=== PATIENT | female | born 1995 | race Caucasian/White ===

== ENCOUNTER 2019-02-04 13:25 | Inpatient (IN) | payer OTHER, SELFPAY ==
[2019-02-04 04:13] VITALS: BMI 32.7
--- NOTE | 2019-02-04 13:03 | OB.TRI.NOTE ---
History of Present Illness Date of Service: 02/04/19 Was patient seen by the physician?: No Reason For Visit: R/O LABOR Date of Service: 02/04/19 Final HERBIE: 02/02/19 Gestational age: 40 Weeks and 2 Days Allergies No Known Allergies Allergy (Verified 02/04/19 04:13) NST - FHR Rate Baby A Baseline: 140 Variability:: Moderate Accelerations:: 15 x 15 Decelerations:: None NST Reactive:: Yes, Appropriate for gestational age FHR Category:: Category I Uterine Activity:: irreg ctxs Impression/Plan 24-year-old 1 para 0 at 40-2/7 weeks gestation with false labor. Patient was discharged home with labor precautions. Kick counts. Follow-up as scheduled or as needed.
[2019-02-04] MEDS: Lactated Ringers 1,000 ML 50 ML IV (14:00)
[2019-02-04] MEDS: Lactated Ringers 500 ML 999 ML IV (14:00)
[2019-02-04 14:15] LABS: Absolute Lymphocyte Count 0.77 X10^3/uL (0.83-4.51); Absolute Neutrophil Count 12.8 X10^3/uL (2.0-7.7); Basophil# 0.06 X10^3/uL; Basophil% 0.4 % (0-1); Eosinophil# 0.01 X10^3/uL; Eosinophils% 0.1 % (0-5); Hematocrit 34.1 % (37-47); Hemoglobin 11.4 g/dL (12.0-15.0); Lymphocyte # 0.77 X10^3/ul (4.0); Lymphocyte % 5.3 % (19-41); Mean Corp Hgb Conc 33.4 g/dL (32-36); Mean Corpuscular Hgb 32.8 pg (27.0-32.0); Mean Platelet Vol. 12.5 fl (6.2-12.0); Monocyte# 0.83 X10^3/uL; Monocyte% 5.7 % (0-10); NRBC Flagged by Analyzer 0 % (0-5); Neutrophil # 12.78 X10^3/uL (2.7-7.7); Neutrophil % 87.2 % (47-70); Platelet Count 147 K/mm3 (150-450); RBC Distribution Width CV 15.6 % (11.6-14.6); RBC Distribution Width SD 55.5 fl (35.1-43.9); Red Blood Count 3.48 M/mm3 (4.2-5.4); White Blood Count 14.6 K/mm3 (4.4-11.0)
[2019-02-04] MEDS: fentaNYL-bupivacaine (epidural) 100 ML BAG EPIDURAL (15:04)
--- NOTE | 2019-02-04 16:56 | PCM.PN.BLA ---
Progress Note Seen at bedside resting comfortably with epidural in place. AROM performed clear fluid expelled. Vaginal exam is 9/100/0. anticipate
[2019-02-04] MEDS: Oxytocin 30 units/NS 500 ml 30 UNITS/500 ML IV.SOLN 334 UNITS IV (19:30)
--- NOTE | 2019-02-04 20:01 | HP.PCM_ITS ---
History Date of Admission: 02/04/19 Final HERBIE: 02/02/19 Final HERBIE Source: US <20 weeks Gestational age: 40 Weeks and 2 Days History of this : This is a 24 year-old, 4 para 0-0-3-0 presents at 40-2/7 weeks gestation complaining of contractions. She was here earlier than day for contractions and was sent home, she arrived back and was found to be in active labor. Denies any gross vaginal bleeding or leaking of fluid. has been complicated to date by anemia of . She did have IV iron infusions for this during the as she had iron malabsorption and did not tolerate oral iron. She has also had PUPPPS Allergies No Known Allergies Allergy (Verified 02/04/19 13:54) Home Medications: Home Medications Iron 45 mg INTRAVESICAL UD 02/04/19 Smoking Status: Never smoker Number of Fetus(es): 1 History Past Pregnancies: Past Pregnancies Delivery Date Name GA/ Weeks Outcome Route Wt Infant Sex Labor Length Anesthesia Delivery Location Provider FOB Expected Infant Delivery Method: Spontaneous Vaginal Review of Systems Constitutional: Denies: Anorexia, Chills, Fever Cardiovascular: Denies: Chest Pain Respiratory: Denies: Cough Genitourinary: Denies: Dysuria Skin: Reports: Rash - PUPPPS Physical Exam General: Alert, Cooperative Cardiovascular: Regular rate Lungs: Normal air movement Abdomen: Soft, Non Tender, Gravid, Appropriate for Gestational Age Extremities:: Other - 1+ edema Neurological: Cranial nerves II-XII grossly intact CHARGE PREPARATION TECHNICIAN: Normal external genitalia Estimated gestational size: Appropriate for gestational size Presentation: Cephalic Cervix Dilation (cm): 5 Station: -1 Effacement (%): 80 Assessment/Plan This is a 24 year-old, 4 para 0 at 40-2/7 weeks gestation in active labor. Estimated weight is less than 4500 g clinically, pelvis is clinically adequate to expect vaginal delivery. May have epidural, nitrous oxide or Nubain as needed for pain control.
--- NOTE | 2019-02-04 20:05 | PCM.OPRPT ---
Vaginal Delivery Maternal Presentation: Active Labor Amniotic Membrane Rupture Type: Artificial Amniotic Fluid Description: Clear Final HERBIE: 02/02/19 Gestational age: 40 Weeks and 2 Days Date of Procedure: 02/04/19 Pre-Operative Diagnosis: labor Post-Operative Diagnosis: same Surgery/ Procedure Performed: Spontaneous Vaginal Delivery Type of Anesthesia: Epidural Description of Procedure: A vigorous male was delivered GLENN over a second-degree perineal laceration. The remainder the was delivered with maternal pushing and gentle traction only in less than 15 seconds. The Pitocin infusion was initiated for active management of the third stage. The cord was clamped and cut after 1 minute. The infant was attended to by the waiting nursing staff. The placenta was delivered spontaneously and intact. The cervix and vagina were intact. The second-degree perineal laceration was repaired with 3-0 Vicryl suture in a running standard fashion. Sponge and needle counts were correct. A vaginal sweep was completed by me. Presentation: [place] Placental Delivery Description: Spontaneous Placenta Disposition: [facility] Cord Vessel Description: 3 Vessels Cord Entanglement: None Drain: Mccarty to straight drain Estimated Blood Loss: 400 A gender: Male (1 minute): 8 (5 minute): 9 Episiotomy Description: None Laceration: 2nd degree - perineal Medications given after delivery: IV Pitocin Complications: None
[2019-02-04] MEDS: 0.9% Saline Lock 10 ML Syringe IV (22:15)
[2019-02-04 23:40] VITALS: BP 107/63; PULSE 107; RESP 16; TEMP 36.6
[2019-02-04] MEDS: Naproxen 250 MG Tablet 500 MG PO (23:51)
[2019-02-05 03:00] VITALS: BP 104/63; PULSE 85; RESP 16; TEMP 36.6
[2019-02-05 06:02] LABS: Hemoglobin 9.3 g/dL (12.0-15.0); Mean Corp Hgb Conc 33.2 g/dL (32-36); Mean Corpuscular Volume 99.3 fL (81-99); Mean Platelet Vol. 12.9 fl (6.2-12.0); POSITIVE DIFFERENTIAL YES; Platelet Count 124 K/mm3 (150-450); RBC Distribution Width CV 15.5 % (11.6-14.6); RBC Distribution Width SD 56.1 fl (35.1-43.9); Red Blood Count 2.82 M/mm3 (4.2-5.4); White Blood Count 15.8 K/mm3 (4.4-11.0)
[2019-02-05 06:05] LABS: Scan Indicated on CBC? Y/N NO
[2019-02-05 08:05] VITALS: BP 107/67; RESP 16; TEMP 36.8
--- NOTE | 2019-02-05 08:11 | PN.OBGYN_ITS ---
Subjective: She is seen at bedside doing well. Patient reports good pain control. Mild lochia. Breast-feeding going well. Voiding without difficulty - Physical Exam Vitals/I&O's: Vital Signs Temp Pulse Resp BP 98.2 F 85 16 107/67 02/05/19 08:05 02/05/19 03:00 02/05/19 08:05 02/05/19 08:05 Oxygen Delivery Method Room Air Weight: 92 kg Body Mass Index (BMI) 32.7 Intake and Output for Last 24 Hours 02/03/19 02/04/19 02/05/19 23:59 23:59 23:59 Intake Total 1995.67 / Output Total 550 / 550 750 / 750 Balance 1446.67 / 1446.67 -750 / -750 General: Alert, Oriented x3 Abdomen: Soft, Non Tender, Non-Distended, - - fundus firm Extremities: No Calf Tenderness Laboratory Results 02/04/19 13:56: WBC 14.6 H, RBC 3.48 L, Hgb 11.4 L, Hct 34.1 L, MCV 98.0, MCH 32.8 H, MCHC 33.4, RDW Std Deviation 55.5 H, RDW Coeff of Stanislaw 15.6 H, Plt Count 147 L, MPV 12.5 H, Immature Gran % (Auto) 1.300 H, Neut % (Auto) 87.2 H, Lymph % (Auto) 5.3 L, Thomas % (Auto) 5.7, Eos % (Auto) 0.1, Baso % (Auto) 0.4, Absolute Neuts (auto) 12.8 H, Absolute Lymphs (auto) 0.77 L, Nucleated RBC % 0 02/04/19 13:56: Blood Type Cancelled, A1 Antigen Typing Cancelled, Rho(D) Type Cancelled, Antibody Screen Cancelled 02/04/19 15:15: Blood Type O POSITIVE, Antibody Screen NEGATIVE 02/05/19 05:15: WBC 15.8 H, RBC 2.82 L, Hgb 9.3 L, Hct 28.0 L, MCV 99.3 H, MCH 33.0 H, MCHC 33.2, RDW Std Deviation 56.1 H, RDW Coeff of Stanislaw 15.5 H, Plt Count 124 L, MPV 12.9 H Current Medications Acetaminophen (Tylenol) 1,000 mg PO Q8H PRN PRN PRN Reason: Pain Score 1-3/10 Bisacodyl (Dulcolax) 10 mg RECTAL UD PRN PRN Reason: If no BM Dibucaine (Dibucaine) 1 applic TOPICAL TID PRN PRN; Protocol PRN Reason: Discomfort Hydrocortisone (Hytone) 1 applic TOPICAL TID PRN PRN; Protocol PRN Reason: Discomfort Methylergonovine Maleate (Methergine) 0.2 mg IM X1 PRN PRN Reason: Excess bleeding/uterine atony Naproxen (Naprosyn) 500 mg PO Q8H PRN PRN PRN Reason: Pain Score 1-3/10 Last Admin: 02/04/19 23:51 Dose: 500 mg Documented by: Ondansetron HCl (Zofran) 4 mg IV Q4H PRN PRN PRN Reason: Nausea Oxycodone HCl (Oxyir) 5 mg PO Q4H PRN PRN PRN Reason: Pain Score 6-10/10 Prochlorperazine Edisylate (Compazine Iv) 10 mg IV Q6H PRN PRN PRN Reason: NAUSEA/VOMITING Senna/Docusate Sodium (Senokot-S, Barbara-Colace) 1 - 2 tablet PO DAILY PRN PRN PRN Reason: Constipation Simethicone (Mylicon) 80 mg PO PCHS PRN PRN Reason: Indigestion/Stomach pain Sodium Chloride () 5 - 15 ml IV UD PRN PRN Reason: SALINE FLUSH Last Admin: 02/04/19 22:15 Dose: 10 ml Documented by: Medical Necessity - Tobacco Use Smoking Status: Never smoker Assessment/Plan PPD#1, doing well routine care pain mgmt ambulation likely dc home in morning
[2019-02-05] MEDS: Naproxen 250 MG Tablet 500 MG PO ×2 (08:35→20:25)
--- NOTE | 2019-02-05 08:47 | NURSING ---
double checked student's assessment of fundus by chcking pt's fundus myself: FF at -1 small amount of rubra noted on peripad. Assisted student with giving pt naproxen per pt request
[2019-02-05 08:53] VITALS: PULSE 72
[2019-02-05 12:00] VITALS: BP 95/59; PULSE 77; RESP 16; TEMP 36.4
[2019-02-05] MEDS: Acetaminophen 500 MG Tablet 1000 MG PO (14:40)
[2019-02-05] MEDS: Senna/Docusate Sodium 1 Tablet PO (14:40)
[2019-02-05] MEDS: Hydrocortisone 2.5% Crm 1 APPLIC TOPICAL (16:53)
[2019-02-05 16:54] VITALS: BP 101/53; PULSE 76; RESP 18; TEMP 36.9
[2019-02-05 20:15] VITALS: BP 110/56; PULSE 61; RESP 16; TEMP 36.7
[2019-02-06 02:55] VITALS: BP 98/49; PULSE 76; RESP 18; TEMP 36.6; O2SAT 95
[2019-02-06] MEDS: Naproxen 250 MG Tablet 500 MG PO (06:51)
[2019-02-06 08:10] VITALS: BP 117/72; PULSE 75; RESP 16; TEMP 36.4
--- NOTE | 2019-02-06 08:30 | PCM.PN.OB ---
Subjective: No complaints - Physical Exam Vitals/I&O's: Vital Signs Temp Pulse Resp BP Pulse Ox 97.9 F 76 18 98/49 L 95 02/06/19 02:55 02/06/19 02:55 02/06/19 02:55 02/06/19 02:55 02/06/19 02:55 Oxygen Delivery Method Room Air Weight: 202 lb 13.204 oz Body Mass Index (BMI) 32.7 Intake and Output for Last 24 Hours 02/04/19 02/05/19 02/06/19 23:59 23:59 23:59 Intake Total 1995.67 / 67 Output Total 550 / 550 750 / 750 Balance 1446.67 / 1446.67 -750 / -750 General: Alert, Oriented x3 Abdomen: Soft, Non Tender, Non-Distended - ff mid & below umb Extremities: No Calf Tenderness Current Medications Acetaminophen (Tylenol) 1,000 mg PO Q8H PRN PRN PRN Reason: Pain Score 1-3/10 Last Admin: 02/05/19 14:40 Dose: 1,000 mg Documented by: Bisacodyl (Dulcolax) 10 mg RECTAL UD PRN PRN Reason: If no BM Dibucaine (Dibucaine) 1 applic TOPICAL TID PRN PRN; Protocol PRN Reason: Discomfort Hydrocortisone (Hytone) 1 applic TOPICAL TID PRN PRN; Protocol PRN Reason: Discomfort Last Admin: 02/05/19 16:53 Dose: 1 applicatio Documented by: Methylergonovine Maleate (Methergine) 0.2 mg IM X1 PRN PRN Reason: Excess bleeding/uterine atony Naproxen (Naprosyn) 500 mg PO Q8H PRN PRN PRN Reason: Pain Score 1-3/10 Last Admin: 02/06/19 06:51 Dose: 500 mg Documented by: Ondansetron HCl (Zofran) 4 mg IV Q4H PRN PRN PRN Reason: Nausea Oxycodone HCl (Oxyir) 5 mg PO Q4H PRN PRN PRN Reason: Pain Score 6-10/10 Prochlorperazine Edisylate (Compazine Iv) 10 mg IV Q6H PRN PRN PRN Reason: NAUSEA/VOMITING Senna/Docusate Sodium (Senokot-S, Barbara-Colace) 1 - 2 tablet PO DAILY PRN PRN PRN Reason: Constipation Last Admin: 02/05/19 14:40 Dose: 2 tablet Documented by: Simethicone (Mylicon) 80 mg PO HS PRN PRN Reason: Indigestion/Stomach pain Sodium Chloride () 5 - 15 ml IV UD PRN PRN Reason: SALINE FLUSH Last Admin: 02/04/19 22:15 Dose: 10 ml Documented by: Medical Necessity - Tobacco Use Smoking Status: Never smoker Assessment/Plan PPD#2 D/c home
--- NOTE | 2019-02-06 08:32 | DCINST_ITS ---
Discharge Diet: No Restrictions Discharge Activity: May Drive, May Shower May resume sexual activity in: 4-6 weeks Weight Bearing Status: Weight bearing as tolerated Additional Instructions: If you experience any of the following, contact your healthcare provider. * Bleeding that soaks a pad every hour for 2 hours * Fever 100.4 or higher * Unrelieved incision or abdominal pain * Swelling, redness, discharge or bleeding from your incision or episiotomy site * Your incision begins to separate * Problems urinating (including inability to urinate or burning while urinating). * Visual changes * Severe headache * Flu-like symptoms * Pain or redness in one of both of your breasts * Pain, warmth, tenderness or swelling in your legs, especially the calf area * Frequent nausea and vomiting * Symptoms of depression or anxiety If you experience any of the following, call 911 or go to the nearest Emergency Room. * Chest pain * Problems breathing * Seizure activity * Partial or complete paralysis of a body part, slurred speech, weakness or drooping of the face, or a sudden inability to walk or hold your balance Allergies/Adverse Reactions: Allergies No Known Allergies Allergy (Verified 02/04/19 13:54) Medications to take at Discharge Iron 45 mg INTRAVESICAL UD 02/04/19 Primary Care Physician: Xander Ziegler MD [Primary Care Provider] - Test Results: Test results from this visit will be discussed in further detail at your follow- up appointment, if applicable.
--- NOTE | 2019-02-06 08:32 | PCM.DCVAG ---
Discharge Diet: No Restrictions Discharge Activity: May Drive, May Shower May resume sexual activity in: 4-6 weeks Weight Bearing Status: Weight bearing as tolerated Additional Instructions: If you experience any of the following, contact your healthcare provider. Bleeding that soaks a pad every hour for 2 hours Fever 100.4 or higher Unrelieved incision or abdominal pain Swelling, redness, discharge or bleeding from your incision or episiotomy site Your incision begins to separate Problems urinating (including inability to urinate or burning while urinating). Visual changes Severe headache Flu-like symptoms Pain or redness in one of both of your breasts Pain, warmth, tenderness or swelling in your legs, especially the calf area Frequent nausea and vomiting Symptoms of depression or anxiety If you experience any of the following, call 911 or go to the nearest Emergency Room. Chest pain Problems breathing Seizure activity Partial or complete paralysis of a body part, slurred speech, weakness or drooping of the face, or a sudden inability to walk or hold your balance Allergies/Adverse Reactions: Allergies No Known Allergies Allergy (Verified 02/04/19 13:54) Medications to take at Discharge Iron 45 mg INTRAVESICAL UD 02/04/19 Primary Care Physician: Xander Ziegler MD [Primary Care Provider] - Test Results: Test results from this visit will be discussed in further detail at your follow-up appointment, if applicable.
[2019-02-06] MEDS: Acetaminophen 500 MG Tablet 1000 MG PO (10:29)
== END 2019-02-06 11:45 | disposition home or self-care (01) | DRG 807 ==
PROVIDERS: Admitting Provider Obstetrics & Gynecology; Family Provider Family Medicine; PCP Family Medicine; Referring Provider Obstetrics & Gynecology; Visit Provider Obstetrics & Gynecology
DX: O99.02 Anemia complicating childbirth (principal); Z37.0 Single live birth; Z3A.40 40 weeks gestation of pregnancy; D50.9 Iron deficiency anemia, unspecified; O70.1 Second degree perineal laceration during delivery
CPT/HCPCS: 59025; 59050; 85025; 85027; 86850; 86900; 86901; 99218; J7120; A4216; G0378

== ENCOUNTER 2023-02-11 15:28 | Day surgery (SDC) | payer OTHER, SELFPAY ==
[2023-02-11] VITALS (10 sets, daily range): BP systolic 96–108; BP diastolic 66–80; PULSE 57–66; RESP 16–18; TEMP 36.3–37.1; O2SAT 98–100; BMI 30.4
[2023-02-11] MEDS: Lactated Ringers 1,000 ML 15 ML IV ×2 (16:20→18:53)
[2023-02-11 16:35] LABS: Hematocrit 34.4 % (37-47); Hemoglobin 11.9 g/dL (12.0-15.0); Mean Corp Hgb Conc 34.6 g/dL (32-36); Mean Corpuscular Hgb 33.2 pg (27.0-32.0); Mean Corpuscular Volume 96.1 fL (81-99); Mean Platelet Vol. 10.7 fl (6.2-12.0); Platelet Count 256 K/mm3 (150-450); RBC Distribution Width CV 11.5 % (11.6-14.6); RBC Distribution Width SD 40.4 fl (35.1-43.9); Red Blood Count 3.58 M/mm3 (4.2-5.4); White Blood Count 8.4 K/mm3 (4.4-11.0)
--- NOTE | 2023-02-11 17:00 | POC_PTH ---
PATIENT: TRENA MARINELLI [place] [facility] [id number] AGE/SX: 28/F ROOM: RE02/11/[address]: Dr. Farzana Davalos DO : 1995 BED: DIS: 02/11/2023 SPEC #: [id number] RECD: 02/12/23 09:31 STATUS: MITZI MARU #: [id number] ELANA: 02/11/23 17:[address]: Farzana Davalos DEPT: SURGICAL PATHOLOGY RECD BY: Li Barcenas ENTERED: 02/12/23 09:31 SP TYPE: PROD CONC OTHR DR: Dr. Xander Ziegler MD Tissues: Product of conception, NOS Procedures: Surgery Specimen Level IV HEADER OPERATION: Suction dilation and curettage PRE-OP DIAGNOSIS: Missed , eight weeks gestation TISSUE SUBMITTED: Products of conception MICROSCOPIC DIAGNOSIS Endometrium, curettage: Chorionic villi, decidualized stroma and trophoblastic cells (products of conception). AM:poncho 02/13/2023 MICROSCOPIC DESCRIPTION Slides are reviewed. GROSS DESCRIPTION Received in fixative is one container labeled with the patient's name and designated products of conception. The specimen consists of multiple irregular fragments of red-vines soft tissue that in aggregate measure 7.0 x 5.0 x 0.5 cm. parts are not grossly recognized. Surfacing Machine Operator portions are submitted for cytogenetic testing. Surfacing Machine Operator portions are submitted in one cassette. / AM:poncho 02/12/2023 TC:5 CPT: 42108
--- NOTE | 2023-02-11 17:13 | PCM.HP.BLA ---
History and Physical Date of Admission: 02/11/23 PROBLEM: MAB ? DIAGNOSIS: MAB ? PAST SURGICAL HISTORY: PAST SURGICAL HISTORYExpand by Default PAST SURGICAL HISTORY Procedure Laterality Date ? CORRECTION OF BUNION ? ? ? age 15 ? ? PAST MEDICAL HISTORY: PAST MEDICAL HISTORYExpand by Default PAST MEDICAL HISTORY Diagnosis Date ? Antepartum anemia 12/11/2018 ? Depression affecting in first trimester, antepartum 01/31/2023 ? fracture age 7 ? Left leg, skateboard accident ? Iron malabsorption 01/01/2019 ? Miscarriage ? ? X3 ? Patient request for diagnostic testing 12/14/2021 ? 12/14/2021atient desires aneuploidy screening. I have given her contact information for [facility]. Patient declines genetic carrier screening testing.Adriana Cabrera RN ? anxiety ? ? ? SUBJECTIVE: No bleeding or cramping. 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 ? SOCIAL HISTORY: SOCIAL HISTORYExpand by Default Social History ? Tobacco Use ? Smoking status: Never ? Smokeless tobacco: Never Vaping Use ? Vaping Use: Never used Substance Use Topics ? Alcohol use: No ? Drug use: No ? ? Allergies: Seasonal Allergies Other: See Comments ? Current Outpatient Medications on File Prior to Visit Medication Sig ? aspirin, enteric coated (ASPIRIN, ENTERIC COATED) 81 mg EC tablet Take 81 mg by mouth once daily. ? prochlorperazine (COMPAZINE) 25 mg suppository 1 Suppository by RECTAL route every 12 hours as needed. ? Tdonpxhm-Oj-Bna-Fe-FA tab Take 1 tablet by mouth. (Patient not taking: No sig reported) ? No current facility-administered medications on file prior to visit. ? ? ? OBJECTIVE: ? VITALS: BP 110/72 LMP 12/13/2022 (Exact Date) ? HEENT: Normocephalic, atraumatic, Mucus membranes moist without lesions. ? NECK: Soft and Supple. ? SKIN: No lesions. ? CHEST: No increased resp effort. ? HEART: Regular rate. ? BACK: Nontender. ? ABDOMEN: Soft, non-tender, non-distended, no masses, no hepatosplenomegaly. ? LOWER EXTREMITIES: There was no pitting edema, no palpable cords and no skin changes. ? ASSESSMENT: MAB ? PLAN: 1) Discussed r/b/a to suction D&C. Reviewed expectant management, medication management with Cytotec, IPAS in office and suction D&C in OR for MAB. Discussed Anora testing and information given. Discussed with patient to check cost and coverage with Anora miscarriage test. Surgery sheet completed. Rh positive blood type. Pt desires to proceed with suction D&C. The rationale for the proposed surgery was discussed in addition to risks, benefits, and alternatives. General pre- and post-operative care was reviewed. Questions were answered. After discussion, the patient indicated a desire to proceed with the planned surgery. ? Farzana Davalos, DO Assessment & Plan Assessment/Plan (1) Missed : (2) 8 weeks gestation of :
[2023-02-11] MEDS: Doxycycline 200 MG in Dextrose 5%-Water (250mL Bag) 250 ML 135 MG IV (17:34)
[2023-02-11] MEDS: miSOPROStol 200 MCG Tablet (18:02)
--- NOTE | 2023-02-11 18:07 | PCM.OPRPT ---
Problems Associated Problem List Diagnoses (1) Missed : (2) 8 weeks gestation of : Report of Operation Date of Procedure: 02/11/23 Pre-Operative Diagnosis: 8 week MAB Post-Operative Diagnosis: 8 week MAB Surgery/Procedure Performed:: Suction D&C under ultrasound guidance Description of Surgical Findings:: Enlarged uterus about 8 week size Surgeon: Farzana Davalos air twister winder: None Type of Anesthesia: MAC Special Medications: None Specimen's removed: Products of conception Drains: None Estimated Blood Loss (mL): < 50 Fluids Replaced: 850 cc Description of Procedure: The patient was taken to the operating room where MAC anesthesia was induced and adequate. She was prepped and draped in the dorsal lithotomy position using yellowfin stirrups. A transabdominal ultrasound was performed confirming an 8-week missed . The weighted speculum was placed in the vagina. Using a right angle retractor for assistance the anterior lip of the cervix was grasped with a single-tooth tenaculum. The cervix was serially dilated to accommodate a size 9 suction curettage. Under ultrasound guidance the suction curettage was advanced into the uterus to evacuate the uterus of the products of conception. A pass was made along each uterine wall with the sharp curettage noting tissue in the left cornua. The size 9 suction curettage was then used to evacuate the remaining products of conception from the cornua. The sharp curettage was used along all 4 uterine angel with a good uterine cry. Transabdominal ultrasound confirmed no retained products. 800 mcg of rectal Cytotec was placed. Bleeding was hemostatic. A vaginal sweep was performed. Sponge count was correct. The patient was taken to the recovery in stable condition. Grafts/Implants Used: None Procedure Start Time: 17:39 Procedure Stop Time: 18:06 Complications None Admit VTE Documentation VTE Present on Admission: No VTE Mechan Device Prophylaxis: SCD's
--- NOTE | 2023-02-11 18:21 | DCINST_ITS ---
Discharge Instructions Diet Discharge Diet: No restrictions Activity Discharge Activity: May Drive (Once you are more than 24 hours out from surgery) and May Shower (Once you are more than 24 hours out from surgery) May resume sexual activity in: 1-2 weeks (No intercourse, tampons, hot tubs, baths, or pools for 1-2 weeks while you are having the bleeding) Weight Bearing Status: Weight bearing as tolerated Dressing / Incision Call your doctor if you observe: Fever of 101 or Higher, Coldness, Increased Pain, Numbness or Tingling, Change in Color, Inability to urinate, Inability to have a bowel movement, Using more than 1 pad per hour, Shortness of breath, Dizziness, Fainting spells, Swelling in the ankles, Chest pain, Increased palpitations (irregular heartbeat), Calf discomfort and Uncontrolled pain Follow Up Care Please Follow Up With: Farzana Davalos DO When: 1-2 weeks post op appointment Test Results: Test results from this visit will be discussed in further detail at your follow- up appointment, if applicable. Discharge Plan Admission Primary Reason for Your Visit: surgery Attending Provider: Farzana Davalos Primary Care Provider: Xander Ziegler Discharge Orders/Prescriptions Prescriptions: Discontinued prochlorperazine [Compro] 25 mg suppository 25 mg VA BID PRN (Reason: nausea) Referrals / Follow Up: Xander Ziegler MD [Primary Care Provider] - Disposition Disposition (needs filled in before D/C Order can be placed): Home, Self Care
[2023-02-11] MEDS: Mag Hydrox/Al Hydrox/Simeth 30 ML UDC PO (19:57)
--- NOTE | 2023-02-11 20:00 | SUR.PHASEII ---
Pt c/o chest pain after walking to bathroom, pt vague about describing, denies SOB, states it does increase with a deep breath. Pt also stated maybe she is just hungry. Dr Davalos called. Orders given for EKG and mylanta. Sats 99-100% on room air. After pt ate more she states it is feeling better, Mylanta given, EKG completed.
--- NOTE | 2023-02-11 20:15 | SUR.PHASEII ---
Instructions given to pt and significant other about d/c home and when to call Dr Davalos or go to ER. Pt agrees to plan and wants to go home.
[2023-02-12 01:56] LABS: Pathology Specimen OB SEE PATHOLOGY REPORT
== END 2023-02-11 20:17 | disposition home or self-care (01) ==
LOC: SDC 15:36 → AC 16:03
PROVIDERS: Obstetrics & Gynecology; PCP Family Medicine; Referring Provider Obstetrics & Gynecology; Visit Provider Obstetrics & Gynecology
PROC: (CPT 59820; principal; 2023-02-11 16:45)
DX: O02.1 Missed abortion (principal); Z79.82 Long term (current) use of aspirin
CPT/HCPCS: 59820; 01965; 85027; 86850; 86900; 86901; 88305; 93005; J7120; J2405